=== PATIENT | female | born 1955 | race Caucasian/White ===

== ENCOUNTER 2018-07-24 10:13 | Inpatient (IN) ==
[2018-07-24] MEDS ORDERED: Chlorhexidine Gluconate 2% 1 Pack (2 Cloths) TOPICAL SCH (11:37)
[2018-07-24] MEDS: Metoprolol Tartrate 25 MG Tablet PO SCH ×2 (11:43→11:44)
[2018-07-24] MEDS ORDERED: ceFAZolin 2 GM Premix Inj 2 GM/50 ML PIGGYBACK IV.SIG SCH (12:00)
[2018-07-24] MEDS ORDERED: Sodium Chlor 0.9% Inj 500 ML IV.SIG SCH (12:00)
[2018-07-24] MEDS ORDERED: Bupivacaine/Epinephrine Inj 0.25% 50 ML Vial ONE (12:49)
[2018-07-24] MEDS ORDERED: Neostigmine Inj 5 MG/5 ML Syringe IV.PUSH ONE (13:26)
[2018-07-24] MEDS ORDERED: Phenylephrine/NS 1000 MCG/10ML Syringe IV.PUSH ONE (13:26)
[2018-07-24] MEDS ORDERED: Esmolol Bolus Inj 100 MG/10 ML Vial IV.PUSH ONE (13:26)
[2018-07-24] MEDS ORDERED: Normosol-R pH 7.4 Inj 1,000 ML IV.CONT ONE (13:26)
[2018-07-24] MEDS ORDERED: Glycopyrrolate Inj 1 MG/5 ML Syringe IV.PUSH ONE (13:26)
[2018-07-24] MEDS ORDERED: Lidocaine PF 1% Inj 5 ML Syringe OTHER ONE (13:26)
[2018-07-24] MEDS ORDERED: Post-op Orders (for Pharmacy) OTHER ONE (16:18)
[2018-07-24] MEDS ORDERED: Naloxone Inj 0.4 MG/ML Vial IV.PUSH PRN (16:18)
--- NOTE | 2018-07-24 16:29 | P.OP ---
- Preoperative Diagnosis (1) Recurrent carcinoma of ovary (2) Splenic mass Date of procedure: 07/24/18 Procedure: Laparoscopic splenectomy Laparoscopic lysis of adhesions Anesthesia: LEONORA Surgeon: Tono Cooper MD Pediatric Physical Therapist: Kathy GUZMAN Estimated blood loss (mL): 10 Pathology: other (spleen) Operation and Findings: Operative findings: extensive filmy adhesions throughout entire abdomen. Unable to visualize or evaluate pelvis. Splenectomy uncomplicated after lysis of adhesions. Procedure in detail: The patient was taken to the operating room and placed in the supine position and a bump placed for 30 degree rotation to the right. General endotracheal anesthesia was induced. The abdomen was prepped and draped in usual sterile fashion and a surgical timeout was performed to verify correct patient procedure and site. Local anesthetic was injected in the skin and subcutaneous tissue superior to the umbilicus and a 5 mm incision made. The 5 mm Optiview trocar with the laparoscope in place was used to directly enter the abdominal cavity which was then insufflated to 15 mmHg with CO2 gas which the patient tolerated well. There was noted to be extensive intra- abdominal adhesions throughout every surface of the peritoneal cavity. In the upper abdomen the adhesions were primarily filmy and soft. The adhesions were quite dense in the lower abdomen and pelvis. In the left upper abdomen midclavicular line a 15 mm incision was made and a 15 mm port placed. Careful sharp lysis of adhesions was performed towards the midline, epigastrium, and right upper abdomen. The liver was adherent to the anterior abdominal wall as well. And a space was created for placement of a 5 mm trocar in the right epigastrium. Lysis of adhesion continue in the left upper abdomen and a 5 mm trocar placed in the lateral left upper abdomen. The patient then was placed in reverse Trendelenburg position and attention turned to the left upper abdomen where the inferior pole of the spleen was visible. There was again significant amount of scar tissue surrounding the spleen and it was adherent to the peritoneum circumferentially. Splenocolic ligaments were taken down with the harmonic scalpel. Short gastric vessels were taken down as well. Adhesions were lysed as necessary. Meticulous dissection in the area of the hilum revealed the splenic vein just before it branched. This was circumferentially dissected and a large clip placed proximally. 35 mm vascular load laparoscopic stapler was then used to transect the splenic vein. This the splenic artery was branched and some of the smaller branches divided with the harmonic scalpel HDI. 2 larger branches of the splenic artery were divided with the vascular load stapler. Still the spleen was quite adherent to surrounding peritoneum and circumferential dissection with the harmonic scalpel was required eventually completely freeing the spleen from peritoneal and diaphragmatic attachments. The spleen was placed in a 15 mm laparoscopic Endo Catch bag and the bag brought partially out through the 15 mm incision. Taking care to avoid any spillage of splenic tissue, the spleen was removed in pieces and sent to pathology for permanent specimen. The bag was removed and the port replaced. The left upper quadrant was reevaluated and there was appropriate hemostasis. Due to the extensive adhesions in the pelvis I did not evaluate the hypermetabolic areas seen on PET scan preoperatively. At this point all trochars were removed. Larger port site fascia was closed with 0 Vicryl suture and skin closed with subcuticular 4-0 Monocryl. The patient tolerated the procedure well and was extubated and taken to PACU in stable condition.
[2018-07-24] MEDS ORDERED: fentaNYL Citrate Inj 100 MCG/2 ML Ampul ONE (16:44)
[2018-07-24] MEDS ORDERED: Sodium Chloride 0.9% 2 ML Flush PRN IV.FLUSH (16:50)
[2018-07-24] MEDS: KCL 20 mEq/D5W/NaCl 0.45% Inj 1,000 ML IV.CONT SCH (17:20)
[2018-07-24] MEDS: Ketorolac 10 MG Tablet PO SCH (18:51)
[2018-07-24] MEDS: Sodium Chloride 0.9% 2 ML Flush BID IV.FLUSH SCH (21:18)
[2018-07-25] MEDS: Ketorolac 10 MG Tablet PO SCH ×2 (00:03→05:51)
[2018-07-25] MEDS: KCL 20 mEq/D5W/NaCl 0.45% Inj 1,000 ML IV.CONT SCH (05:06)
[2018-07-25 07:48] LABS: Baso % (Auto) 0.4 % (0.0-2.0); Hematocrit 37.9 % (35.0-46.0); Hemoglobin 12.4 gm/dL (11.6-15.3); Lymph # (Auto) 1.3 th/mm3 (1.0-4.8); Lymph % (Auto) 14.5 % (9.0-44.0); Mean Corpuscular HGB Conc 32.6 % (32.0-36.0); Mean Corpuscular Hemoglobin 27.4 pg (27.0-34.0); Mean Corpuscular Volume 84.2 fL (80.0-100.0); Mean Platelet Volume 9.3 fL (7.0-11.0); Mono # (Auto) 0.8 th/mm3 (0.0-0.9); Mono % (Auto) 8.8 % (0.0-8.0); Neut # (Auto) 6.6 th/mm3 (1.8-7.7); Neut % (Auto) 76.3 % (16.0-70.0); Platelet Count 242 th/mm3 (150-450); Red Cell Distribution Width 14.5 % (11.6-17.2); White Blood Count 8.7 th/mm3 (4.0-11.0)
[2018-07-25 08:08] VITALS: RESP 17
[2018-07-25] MEDS: Sodium Chloride 0.9% 2 ML Flush BID IV.FLUSH SCH (08:17)
[2018-07-25 12:03] VITALS: BP 114/61; PULSE 99; TEMP 97.4; O2SAT 96
== END 2018-07-25 15:02 | disposition home or self-care (01) ==
LOC: HSDI 10:13 → N07 18:28
PROVIDERS: ADMIT Surgery; ATTEND Surgery
PROC: LAPAPPY (ICD-10-PCS; 2018-07-24 13:26)